=== PATIENT | female | born 1940 | race African-American/Black ===

== ENCOUNTER 2021-01-26 09:41 | Emergency (ER) | payer OTHER ==
[~2021-01-26] VITALS: Ht 157.5 cm; Wt 72.6 kg
[~2021-01-26 09:41] MED LIST: ALEN70TA79 PO; AMLO5TAB4 PO; ASPI-1497 PO; ATOR10TA69 PO; COLESTIPOL PO; GLIP5TAB12 PO; METO-396 PO; MULT-348 PO; NORT50CA PO; TEMA15CA PO
[2021-01-26 10:22] LABS: BASOPHILS % 0.7 % (0.0-2.0); EOSINOPHILS % 0.3 % (0.0-5.0); HEMATOCRIT. 36.3 % (36.0-48.0); HEMOGLOBIN. 12.1 g/dL (12.0-16.0); LYMPHOCYTES % 10.7 % (20.0-50.0); MEAN CORPUSCULAR VOLUME 80.9 fL (81.0-99.0); MEAN PLATELET VOLUME 7.7 fl (7.4-10.4); MONOCYTES % 10.1 % (2.0-8.0); NEUTROPHILS % 78.2 % (40.0-76.0); PLATELET 305 x1000/uL (130-400); RED BLOOD CELL COUNT 4.49 mill/uL (4.2-5.4)
[2021-01-26 10:28] LABS: CHLORIDE 104 mEq/L (98-107)
[2021-01-26 12:21] VITALS: BP 148/66
== END 2021-01-26 12:23 | disposition home or self-care (01) ==
LOC: ER 10:20
DX: R42 Dizziness and giddiness (principal); E11.9 Type 2 diabetes mellitus without complications; I10 Essential (primary) hypertension; Z79.899 Other long term (current) drug therapy; Z88.8 Allergy status to other drugs, medicaments and biological substances
CPT/HCPCS: 36415; 71045; 80053; 85025; 93005; 99285